=== PATIENT | male | born 1930 | race Caucasian/White ===

== ENCOUNTER → 2018-02-20 | Outpatient (CLI) | payer MEDICARE ==
[~2018-02-20] MED LIST: ALL300 PO; ALLO-2 PO; AMOX-559 PO; ASP81 PO; ASPI81TA94 PO; AZIT-1 PO; CYA1000 PO; GUAI120L3 PO; HCTZ25 PO; HYDR-2966 PO; LOSA100T67 PO; LOSA50TA72 PO; METO-253 PO; METO25TA91 PO; METO25TA93 PO; NEBI5TAB PO; PER PO; PNEU0.5D3 IM; SIMV-44 PO; SIMV-49 PO; SIMV10TA98 PO; VAL80 PO
== END ==
LOC: LAB 06:57
PROVIDERS: ATTEND Internal Medicine
DX: I10 Essential (primary) hypertension (principal); E78.5 Hyperlipidemia, unspecified
CPT/HCPCS: 36415; 82040; 82247; 82310; 82374; 82435; 82465; 82565; 82947; 83718; 84075; 84132; 84155; 84295; 84450; 84460; 84478; 84520

== ENCOUNTER → 2018-02-25 | Outpatient (CLI) | payer MEDICARE | LOC: LAB 09:53 | PROVIDERS: ATTEND Internal Medicine | DX: R76.9 Abnormal immunological finding in serum, unspecified (principal); I10 Essential (primary) hypertension | CPT/HCPCS: 36415; 82040; 82247; 82310; 82374; 82435; 82565; 82947; 84075; 84132; 84155; 84295; 84450; 84460; 84520 ==

== ENCOUNTER → 2018-05-05 | Outpatient (REF) | payer MEDICARE ==
[~2018-05-05] MED LIST changes: -LOSA100T67 PO; +LOSA100T69 PO; -LOSA50TA72 PO; +LOSA50TA74 PO
[2018-05-05 12:30] LABS: PLATELET COUNT, AUTOMATED 195 K/uL (150-450)
[2018-05-05 12:44] LABS: INR 1.09
== END ==
PROVIDERS: ATTEND Family Medicine
DX: R55 Syncope and collapse (principal)
CPT/HCPCS: 82040; 82247; 82310; 82374; 82435; 82565; 82947; 84075; 84132; 84155; 84295; 84450; 84460; 84484; 84520; 85025; 85610; 86140

== ENCOUNTER → 2018-05-07 | Outpatient (CLI) | payer MEDICARE ==
[~2018-05-07] MED LIST changes: +PANT40TA65 PO; +POLY17PO25 PO; +SUCR1TAB85 PO
[2018-05-07 11:10] LABS: PLATELET COUNT, AUTOMATED 180 K/uL (150-450)
== END ==
LOC: LAB 11:01
PROVIDERS: ATTEND Internal Medicine
DX: R19.5 Other fecal abnormalities (principal)
CPT/HCPCS: 36415; 85025

== ENCOUNTER 2018-06-08 23:14 | Inpatient (IN) | payer MEDICARE ==
[~2018-06-08] VITALS: Ht 162.6 cm; Wt 74.8 kg
--- NOTE | 2018-06-08 23:28 | ER Report ---
History and Physical Time Seen By MD: 23:27 HPI/ROS CHIEF COMPLAINT: Difficulty breathing HISTORY OF PRESENT ILLNESS: 77-year-old male been sick with URI symptoms for 2-3 days. Had a coughing episode this afternoon he became more short of breath. He is unable to catch his breath. On Arrival here, pulse ox is 87%. Patient states he is on no O2 at home. He's placed on supplemental O2. He is not on home O2. He does have a history of COPD. He's had a productive cough of some green sputum. He denies fevers. Patient denies chest pain. He denies leg swelling. REVIEW OF SYSTEMS: Respiratory: As above Cardiovascular: No chest pain, no palpitations. Gastrointestinal: No vomiting, no abdominal pain. Musculoskeletal: No back pain. Allergies: Coded Allergies: No Known Drug Allergies (Unverified , 12/07/14) Home Meds Active Scripts Pantoprazole Sodium (PANTOPRAZOLE SODIUM) 40 Mg Tablet.dr, 1 TAB PO DAILY, #90 TAB.SR 3 Refills Prov:KEERTHI MERCADO MD 05/31/18 Simvastatin (SIMVASTATIN) 10 Mg Tablet, 1 TAB PO QODAY, #45 TAB 3 Refills Prov:KEERTHI MERCADO MD 12/12/17 Hydrochlorothiazide (HYDROCHLOROTHIAZIDE) 25 Mg Tablet, 1 TAB PO QDAY, #90 TAB 3 Refills Prov:KEERTHI MERCADO MD 12/12/17 Allopurinol (Allopurinol) 300 Mg Tablet, 1 TAB PO DAILY, #90 TAB 3 Refills Prov:KEERTHI MERCADO MD 12/12/17 Losartan Potassium (LOSARTAN POTASSIUM) 100 Mg Tablet, 1 TAB PO QDAY, #90 TB12 3 Refills Prov:KEERTHI MERCADO MD 10/23/17 Nebivolol Hcl (BYSTOLIC) 5 Mg Tablet, 1 TAB PO QDAY, #90 TAB 3 Refills Prov:KEERTHI MERCADO MD 10/23/17 Reported Medications Aspirin (ASPIRIN) 81 Mg Tab.chew, 81 MG PO QDAY, TAB.CHEW 06/08/18 Polyethylene Glycol 3350 (MIRALAX) 17 Gm Powd.pack, 1 PACK PO QODAY, GM 05/07/18 Discontinued Reported Medications Aspirin (ASPIRIN) 81 Mg Tab.chew, 1 TAB PO BID, TAB.CHEW 03/01/15 Discontinued Scripts Sucralfate (CARAFATE) 1 Gm Tablet, 1 GM PO ACHS, #56 TAB 0 Refills Prov:KEERTHI MERCADO MD 05/07/18 Past Medical/Surgical History Past Medical History Neurologic: Reports hx of: transient ischemic attack ('93) Cardiovascular: Reports hx of: coronary artery disease (PTCA stent X2) hyperlipidemia hypertension myocardial infarction (09/2006) Respiratory: Reports hx of: COPD (former smoker, CXR c/w COPD) Musculoskeletal: Reports hx of: gout Integumentary: Reports hx of: eczema other integumentary hx (Rosacea) Past Surgical History HEENT: Reports hx of: cataract extraction (R eye 09/28, L 2013 ) Cardiovascular: Reports hx of: coronary stent (X 2006) Gastrointestinal: Reports hx of: appendectomy (age 15) Musculoskeletal: Reports hx of: carpal tunnel release (R 07/07) Family History Hx Smoking: Yes Smoking Status: Former Smoker Exposure to Second Hand Smoke?: No Hx Substance Use Disorder: No Hx Alcohol Use: Yes (BEER TONITE) Constitutional Vital Sign - Last 24 Hours 06/08/18 06/08/18 06/09/18 06/09/18 23:29 23:57 00:01 00:16 Temp 97.6 Pulse 100 ? Resp 20 B/P (MAP) 134/82 Pulse Ox 87 O2 Delivery Room Air O2 Flow Rate 2.0 06/09/18 06/09/18 06/09/18 06/09/18 00:46 00:58 01:01 01:16 Pulse ??? 80 ??? B/P (MAP) 149/82 (104) Pulse Ox 89 06/09/18 06/09/18 06/09/18 06/09/18 01:30 01:31 01:40 01:46 Pulse 71 63 Resp 20 B/P (MAP) 137/87 (104) 138/77 (97) Pulse Ox 95 97 06/09/18 06/09/18 06/09/18 01:50 02:00 02:01 Pulse 58 B/P (MAP) 130/67 (88) 119/67 (84) Physical Exam Vital signs stable, tachycardic, irregular rhythm on the monitor, ox 87% on room air, placed on 2 L by nasal cannula pale appearing, skin warm and dry, mild respiratory distress General Appearance: The patient is alert, has no immediate need for airway protection and no current signs of toxicity. HEENT: Pupils equal and round no injection. Respiratory: Chest is non tender,, there are decreased breath sounds on the left. There are Rales noted in the base on the right Cardiac: regular rate and rhythm Gastrointestinal: Abdomen is soft and non tender, no masses, bowel sounds normal. Musculoskeletal: Neck: Neck is supple and non tender. No JVD, no lymphadenopathy Extremities have full range of motion and are non tender. There is chronic appearing edema of the right lower extremity. Patient states it's normal Skin: No rashes or lesions. DIFFERENTIAL DIAGNOSIS: After history and physical exam differential diagnosis was considered for shortness of breath including but not limited to pulmonary infectious process, COPD, asthma, pulmonary embolus and congestive heart failure. Medical Decision Making Data Points Result Diagram: 06/08/18 2348 06/08/18 2348 Laboratory Hematology Test 06/08/18 23:48 06/09/18 01:10 Red Blood Count 4.24 M/uL (4.00-5.60) Mean Corpuscular Volume 99.1 fL (80.0-96.0) Mean Corpuscular Hemoglobin 33.4 pg (26.0-33.0) Mean Corpuscular Hemoglobin Concent 33.7 g/dL (32.0-36.0) Red Cell Distribution Width 14.3 % (11.5-14.5) Mean Platelet Volume 9.4 fL (7.2-11.1) Neutrophils (%) (Auto) % (39.4-72.5) Lymphocytes (%) (Auto) % (17.6-49.6) Monocytes (%) (Auto) % (4.1-12.4) Eosinophils (%) (Auto) % (0.4-6.7) Basophils (%) (Auto) % (0.3-1.4) Nucleated RBC Relative Count (auto) /100WBC Neutrophils # (Auto) K/uL (2.0-7.4) Lymphocytes # (Auto) K/uL (1.3-3.6) Monocytes # (Auto) K/uL (0.3-1.0) Eosinophils # (Auto) K/uL (0.0-0.5) Basophils # (Auto) K/uL (0.0-0.1) Nucleated RBC Absolute Count (auto) K/uL Neutrophils % (Manual) 85 % (39.4-72.5) Lymphocytes % (Manual) 9 % (17.6-49.6) Monocytes % (Manual) 2 % (4.1-12.4) Eosinophils % (Manual) 0 % (0.4-6.7) Basophils % (Manual) 1 % (0.3-1.4) Metamyelocytes % 3 % Peripheral Blood Smear Yes Y/N D-Dimer Quantitative (PE/DVT) 0.61 ug/ml (0-0.50) Sodium Level 135 mmol/L (137-145) Potassium Level 3.6 mmol/L (3.5-5.0) Chloride Level 101 mmol/L (98-107) Carbon Dioxide Level 23 mmol/L (22-30) Blood Urea Nitrogen 23 mg/dl (9-21) Creatinine 1.50 mg/dl (0.66-1.25) Glomerular Filtration Rate Calc 44.2 Random Glucose 149 mg/dl (75-110) Calcium Level 9.7 mg/dl (8.4-10.2) Total Bilirubin 0.9 mg/dl (0.2-1.3) Aspartate Amino Transf (AST/SGOT) 22 U/L (0-35) Alanine Aminotransferase (ALT/SGPT) 30 U/L (0-56) Alkaline Phosphatase 61 U/L (0-126) Troponin I 0.018 ng/ml B-Type Natriuretic Peptide 158 pg/ml (0-100) Total Protein 6.9 g/dl (6.3-8.2) Albumin 3.9 g/dl (3.5-5.0) Urine Color Yasemin Urine Clarity Slightly-cloudy Urine pH 5.0 pH (4.8-9.5) Urine Specific [place] 1.025 Urine Protein 100 mg/dL (NEGATIVE) Urine Glucose (UA) Negative mg/dL (NEGATIVE) Urine Ketones Negative mg/dL (NEGATIVE) Urine Blood Negative (NEGATIVE) Urine Nitrite Negative (NEGATIVE) Urine Bilirubin Negative (NEGATIVE) Urine Urobilinogen 2.0 mg/dL (0.2-1.9) Urine Leukocyte Esterase Negative (NEGATIVE) Urine RBC 2 /HPF (0-2/HPF) Urine WBC 1 /HPF (0-5/HPF) Urine Squamous Epithelial Cells Moderate /LPF (</=FEW) Urine Transitional Epithelial Cells Few /LPF (NONE-FEW) Urine Bacteria Negative /HPF (NONE-FEW) Urine Hyaline Casts Few /LPF (NONE-FEW) Urine Mucus Few /HPF (NONE-FEW) Chemistry Test 06/08/18 23:48 06/09/18 01:10 White Blood Count 10.7 k/uL (4.5-11.0) Red Blood Count 4.24 M/uL (4.00-5.60) Hemoglobin 14.1 g/dL (14.0-18.0) Hematocrit 42.0 % (42.0-52.0) Mean Corpuscular Volume 99.1 fL (80.0-96.0) Mean Corpuscular Hemoglobin 33.4 pg (26.0-33.0) Mean Corpuscular Hemoglobin Concent 33.7 g/dL (32.0-36.0) Red Cell Distribution Width 14.3 % (11.5-14.5) Platelet Count 204 K/uL (150-450) Mean Platelet Volume 9.4 fL (7.2-11.1) Neutrophils (%) (Auto) % (39.4-72.5) Lymphocytes (%) (Auto) % (17.6-49.6) Monocytes (%) (Auto) % (4.1-12.4) Eosinophils (%) (Auto) % (0.4-6.7) Basophils (%) (Auto) % (0.3-1.4) Nucleated RBC Relative Count (auto) /100WBC Neutrophils # (Auto) K/uL (2.0-7.4) Lymphocytes # (Auto) K/uL (1.3-3.6) Monocytes # (Auto) K/uL (0.3-1.0) Eosinophils # (Auto) K/uL (0.0-0.5) Basophils # (Auto) K/uL (0.0-0.1) Nucleated RBC Absolute Count (auto) K/uL Neutrophils % (Manual) 85 % (39.4-72.5) Lymphocytes % (Manual) 9 % (17.6-49.6) Monocytes % (Manual) 2 % (4.1-12.4) Eosinophils % (Manual) 0 % (0.4-6.7) Basophils % (Manual) 1 % (0.3-1.4) Metamyelocytes % 3 % Peripheral Blood Smear Yes Y/N D-Dimer Quantitative (PE/DVT) 0.61 ug/ml (0-0.50) Glomerular Filtration Rate Calc 44.2 Calcium Level 9.7 mg/dl (8.4-10.2) Total Bilirubin 0.9 mg/dl (0.2-1.3) Aspartate Amino Transf (AST/SGOT) 22 U/L (0-35) Alanine Aminotransferase (ALT/SGPT) 30 U/L (0-56) Alkaline Phosphatase 61 U/L (0-126) Troponin I 0.018 ng/ml B-Type Natriuretic Peptide 158 pg/ml (0-100) Total Protein 6.9 g/dl (6.3-8.2) Albumin 3.9 g/dl (3.5-5.0) Urine Color Yasemin Urine Clarity Slightly-cloudy Urine pH 5.0 pH (4.8-9.5) Urine Specific [place] 1.025 Urine Protein 100 mg/dL (NEGATIVE) Urine Glucose (UA) Negative mg/dL (NEGATIVE) Urine Ketones Negative mg/dL (NEGATIVE) Urine Blood Negative (NEGATIVE) Urine Nitrite Negative (NEGATIVE) Urine Bilirubin Negative (NEGATIVE) Urine Urobilinogen 2.0 mg/dL (0.2-1.9) Urine Leukocyte Esterase Negative (NEGATIVE) Urine RBC 2 /HPF (0-2/HPF) Urine WBC 1 /HPF (0-5/HPF) Urine Squamous Epithelial Cells Moderate /LPF (</=FEW) Urine Transitional Epithelial Cells Few /LPF (NONE-FEW) Urine Bacteria Negative /HPF (NONE-FEW) Urine Hyaline Casts Few /LPF (NONE-FEW) Urine Mucus Few /HPF (NONE-FEW) Coagulation Test 06/08/18 23:48 D-Dimer Quantitative (PE/DVT) 0.61 ug/ml Urinalysis Test 06/09/18 01:10 Urine Color Yasemin Urine Clarity Slightly-cloudy Urine pH 5.0 pH (4.8-9.5) Urine Specific [place] 1.025 Urine Protein 100 mg/dL (NEGATIVE) Urine Glucose (UA) Negative mg/dL (NEGATIVE) Urine Ketones Negative mg/dL (NEGATIVE) Urine Blood Negative (NEGATIVE) Urine Nitrite Negative (NEGATIVE) Urine Bilirubin Negative (NEGATIVE) Urine Urobilinogen 2.0 mg/dL (0.2-1.9) Urine Leukocyte Esterase Negative (NEGATIVE) Urine RBC 2 /HPF (0-2/HPF) Urine WBC 1 /HPF (0-5/HPF) Urine Squamous Epithelial Cells Moderate /LPF (</=FEW) Urine Transitional Epithelial Cells Few /LPF (NONE-FEW) Urine Bacteria Negative /HPF (NONE-FEW) Urine Hyaline Casts Few /LPF (NONE-FEW) Urine Mucus Few /HPF (NONE-FEW) EKG/Imaging EKG Interpretation 12 lead EK Rhythm: Indeterminate rhythm, appears a regular there are P waves in front of certain complexes [place]: Left axis deviation QRS: Right bundle branch block pattern ST segments:, Nonspecific ST and T-wave changes, comparison to previous EKG on 06/04/17, no significant morphologic change. Patient was previously in a normal sinus rhythm with first-degree AV block Imaging X-ray: Single view portable chest x-ray was obtained. I viewed the images myself on the PACS system. My interpretation of the images is: Large pneumot horax on the left. The radiologist interpretation had no clinically significant variation from this interpretation. ED Course/Re-evaluation ED Course Patient was admitted to an examination room. H&P was done. The differential diagnosis was considered. On clinical examination. Patient has symptoms suggestive of pneumonia or bronchitis. Patient has worsening shortness of breath worrisome for pulmonary embolism as well. Agnostic evaluation is undertaken. Portable chest x-rays performed, which shows a large pneumothorax on the left. Surgical consultation with Dr. Osorio was obtained. He will come place a chest tube and admit the patient to the hospital. 06/09/2018 12:56:12 am case discussed with Dr. Matt Osorio, general surgery on- call, who will come insert a chest tube and admit the patient. Decision to Disposition Date: Jun 09, 2018 Decision to Disposition Time: 00:55 Depart Departure Latest Vital Signs Vital Signs Date Time Temp Pulse Resp B/P (MAP) Pulse Ox O2 Delivery O2 Flow Rate FiO2 06/09/18 02:01 58 06/09/18 02:00 119/67 (84) 06/09/18 01:46 97 06/09/18 01:31 20 06/08/18 23:57 2.0 06/08/18 23:29 97.6 Room Air Impression: Primary Impression: Pneumothorax, left Additional Impressions: Pure hypercholesterolemia Gout Essential hypertension Condition: Improved Disposition: Admitted from ER Referrals: KEERTHI MERCADO MD (PCP) Problem Qualifiers Additional Impressions: Gout Gout site: unspecified site Gout etiology: unspecified cause Chronicity: unspecified Qualified Codes: M10.9 - Gout, unspecified CHANDA VILLALOBOS DO Jun 08, 2018 23:27
--- NOTE | 2018-06-08 23:44 | EKG ---
FACILITY: [facility] PATIENT NAME: SOBEIDA GARCIA : [id number] MR: [id number] V: [id number] EXAM DATE: ORDERING PHYSICIAN: CHANDA VILLALOBOS TECHNOLOGIST: DILAN Test Reason : DYSPNEA Blood Pressure : / mmHG Vent. Rate : 086 BPM Atrial Rate : 085 BPM P-R Int : 000 ms QRS Dur : 138 ms QT Int : 410 ms P-R-T Axes : 000 -87 070 degrees QTc Int : 490 ms Sinus rhythm with 1st degree AV block and frequent PACs Left axis deviation Right bundle branch block Abnormal ECG When compared with ECG of 04-JUN-2017 15:25, Current undetermined rhythm precludes rhythm comparison, needs review Confirmed by MEGAN VIGIL ([id number]) on 06/09/2018 6:16:14 AM Referred By: Confirmed By:MEGAN VIGIL
[2018-06-08] MEDS ORDERED: ASPI81TA94 PO (23:52)
[2018-06-09 00:18] LABS: PLATELET COUNT, AUTOMATED 204 K/uL (150-450)
--- NOTE | 2018-06-09 00:53 | RADIOLOGY IMAGING REPORT ---
FACILITY: [facility] [place] PATIENT NAME: Collins Newman : 1930 MR: [id number] V: [id number] EXAM DATE: ORDERING PHYSICIAN: CHANDA VILLALOBOS TECHNOLOGIST: Location: [facility] Patient: Collins Newman : 1930 Visit/Account:[id number] Date of Sevice: 06/08/2018 CHEST PA AND LAT HISTORY: Respiratory distress. COMPARISON: 05/05/2018 and studies dating to 08/20/2008. TECHNIQUE: PA and lateral views of the chest. FINDINGS: Pulmonary: There is a moderate to large left pneumothorax with atelectasis in the visible left lung. Right lung is clear. There is a trace left pleural effusion. Cardiomediastinal: Cardiac and mediastinal silhouettes are within normal limits. There is mild aortic calcification. No mediastinal shift. Bones/soft tissues: No acute osseous abnormality. There is mild degenerative change of the spine. The visible abdomen is normal. IMPRESSION: 1. Moderate to large left pneumothorax without evidence for tension. 2. Trace left pleural effusion. 3. Right lung is clear. These findings were discussed by phone with CHANDA VILLALOBOS on 06/09/2018 12:45 AM. Report Dictated By: Radha Ellis at 06/09/2018 12:44 AM Report E-Signed By: Radha Ellis at 06/09/2018 12:49 AM WSN:[id number]
[2018-06-09] MEDS ORDERED: ONDANSETRON 4 MG/2 ML VIAL IVP PRN (01:55)
[2018-06-09] MEDS ORDERED: MORPHINE 2 MG/ML SYR IVP PRN (01:55)
[2018-06-09] MEDS ORDERED: FLUSH 10 ML SYR IVP PRN (01:55)
[2018-06-09] MEDS ORDERED: NALOXONE HCL 0.4 MG/ML VIAL IVP PRN (01:55)
--- NOTE | 2018-06-09 01:55 | RADIOLOGY IMAGING REPORT ---
FACILITY: [facility] - [place] [place] PATIENT NAME: Collins Newman : 1930 MR: [id number] V: [id number] EXAM DATE: ORDERING PHYSICIAN: CHANDA VILLALOBOS TECHNOLOGIST: Location: [facility] Patient: Collins Newman : 1930 Visit/Account:[id number] Date of Sevice: 06/09/2018 CHEST SINGLE AP HISTORY: Pneumothorax. Chest tube placement. COMPARISON: None available. FINDINGS: Lines/tubes: Interval placement of a left-sided chest tube with the tip projecting over the left hil um. Lungs/pleura: Interval reexpansion of the left lung with no definite residual pneumothorax. Heart: Negative. Mediastinum: Negative. Bony structures/body wall: Soft tissue gas in the left chest wall consistent with recent chest tube placement. IMPRESSION: Interval placement of a left-sided chest tube with reexpansion of the left lung. Report Dictated By: Anand Anderson MD at 06/09/2018 1:50 AM Report E-Signed By: Anand Anderson MD at 06/09/2018 1:52 AM WSN:[id number]
--- NOTE | 2018-06-09 01:59 | Procedure Note ---
Chest Tube Procedure Note Reason for Chest Tube Left PTX Consent Signed: No Chest Tube Location: Left Lung Complications: None Anesthesia Used: 1% Lidocaine CC's of Anesthesia: 10 Chest Tube Size Fr.: 28 Chest Tube Suction: Pleura-Vac Chest Tube Secured: Occlusive Dressing Post Procedure Xray Ordered: Yes DAQUAN LORENZ MD Jun 09, 2018 01:59
--- NOTE | 2018-06-09 02:02 | Gen Surgery History & Physical ---
History of Present Illness Chief Complaint Shortness of breath History of Present Illness 87-year-old gentleman reports that he has been dealing with a upper respiratory infection involving a cough when he was coughing earlier this evening and then shortly thereafter started having chest pain and shortness of breath prompting him to come into the emergency room. Chest x-ray reveals a left pneumothorax with left lung 80% collapsed. He has never before had a pneumothorax. He denies any history of chest surgery. History Problems: (1) History of peptic ulcer disease Status: Chronic (2) Rosacea Status: Chronic (3) Dermatitis Status: Chronic (4) Gout Status: Chronic (5) Essential hypertension Status: Chronic (6) Pure hypercholesterolemia Status: Chronic (7) FH: diabetes mellitus (8) FH: alcoholism (9) FHx: heart disease (10) FH: memory loss (11) FH: myocardial infarction Home Meds Active Scripts Pantoprazole Sodium (PANTOPRAZOLE SODIUM) 40 Mg Tablet.dr, 1 TAB PO DAILY, #90 TAB.SR 3 Refills Prov:KEERTHI MERCADO MD 05/31/18 Simvastatin (SIMVASTATIN) 10 Mg Tablet, 1 TAB PO QODAY, #45 TAB 3 Refills Prov:KEERTHI MERCADO MD 12/12/17 Hydrochlorothiazide (HYDROCHLOROTHIAZIDE) 25 Mg Tablet, 1 TAB PO QDAY, #90 TAB 3 Refills Prov:KEERTHI MERCADO MD 12/12/17 Allopurinol (Allopurinol) 300 Mg Tablet, 1 TAB PO DAILY, #90 TAB 3 Refills Prov:KEERTHI MERCADO MD 12/12/17 Losartan Potassium (LOSARTAN POTASSIUM) 100 Mg Tablet, 1 TAB PO QDAY, #90 TB12 3 Refills Prov:KEERTHI MERCADO MD 10/23/17 Nebivolol Hcl (BYSTOLIC) 5 Mg Tablet, 1 TAB PO QDAY, #90 TAB 3 Refills Prov:KEERTHI MERCADO MD 10/23/17 Reported Medications Aspirin (ASPIRIN) 81 Mg Tab.chew, 81 MG PO QDAY, TAB.CHEW 06/08/18 Polyethylene Glycol 3350 (MIRALAX) 17 Gm Powd.pack, 1 PACK PO QODAY, GM 05/07/18 Discontinued Reported Medications Aspirin (ASPIRIN) 81 Mg Tab.chew, 1 TAB PO BID, TAB.CHEW 03/01/15 Discontinued Scripts Sucralfate (CARAFATE) 1 Gm Tablet, 1 GM PO ACHS, #56 TAB 0 Refills Prov:KEERTHI MERCADO MD 05/07/18 Allergies: Coded Allergies: No Known Drug Allergies (Unverified , 12/07/14) Patient History: FH: alcoholism BROTHER OR SISTER (WAS TWIN TO A SISTER), , Age:82 FH: diabetes mellitus BROTHER OR SISTER, , Age:53 FH: memory loss BROTHER OR SISTER, Age:90 FH: myocardial infarction FATHER, , Age:59 MOTHER, , Age:78 FHx: heart disease FATHER, , Age:59 MOTHER, , Age:78 Review of Systems All Systems Reviewed/Normal: Yes, Except as Noted Cardiovascular: Chest Pain Respiratory: Shortness of Breath, Cough Exam General Appearance: Alert, Awake, No Acute Distress, Afebrile Neuro: No Gross deficits Eyes: PERRLA Respiratory: Other (distant left breast sounds, normal on right) GI: Abd Soft and Non-Tender Extremities: Warm, Perfused Psych: Alert & Oriented X3, Appropriate Mood & Affect Medical Decision Making Data Points Result Diagram: 06/08/188 06/08/18 234 Assessment and Plan Problems: (1) Pneumothorax, left Status: Acute Assessment & Plan: 06/09/18: Left 28 Taj[place] chest tube inserted without problems. Post placement film reveals complete expansion of left lung. Patient will be admitted for chest tube management. Patient and are agreeable with this plan. Condition Stable Time Spent: < 30 min Venous Thromboembolism VTE Risk Physician Assess for VTE Risk: Yes Patient's VTE Risk: Low VTE Diagnostic Test 2 Days Prior to Admit: No Antithrombotics Is Pt On Any Antithrombotics?: No DAQUAN LORENZ MD Jun 09, 2018 02:02
[2018-06-09] MEDS ORDERED: fentaNYL CITR 100 MCG/2 ML AMP IVP PRN (02:35)
[2018-06-09 03:40] VITALS: BP 127/55
--- NOTE | 2018-06-09 05:35 | EKG ---
FACILITY: [facility] - [place] PATIENT NAME: SOBEIDA GARCIA : [id number] MR: [id number] V: [id number] EXAM DATE: ORDERING PHYSICIAN: DAQUAN LORENZ TECHNOLOGIST: DILAN Test Reason : ? ST CHANGES Blood Pressure : / mmHG Vent. Rate : 058 BPM Atrial Rate : 058 BPM P-R Int : 286 ms QRS Dur : 124 ms QT Int : 440 ms P-R-T Axes : 073 -76 -17 degrees QTc Int : 431 ms Sinus bradycardia with 1st degree AV block Left axis deviation Right bundle branch block Abnormal ECG Confirmed by MEGAN VIGIL ([id number]) on 06/09/2018 6:14:13 AM Referred By: Confirmed By:MEGAN VIGIL
[2018-06-09] MEDS ORDERED: NS(*) 0.9% 1000 ML BAG 1,000 ML IV ONE (05:55)
--- NOTE | 2018-06-09 05:58 | Hospitalist Consultation ---
History of Present Illness Requesting Physician Dr. Clay Reason for Consult ST elevation on telemetry Chief Complaint Shortness of breath and chest pain after coughing. History of Present Illness The patient is an 87 year old male admitted for pneumothorax which occurred after he had a coughing spell last evening. The patient has had URI symptoms at home. The patient developed acute shortness of breath and increased chest pain last evening and [facility]. He was found to have a left-sided pneumothorax. Dr. Clay placed a chest tube and his lung was reexpanded. The patient states he continues to have some chest pain with coughing but his pain is otherwise much improved. The patient has a history of CAD. He was having chest pain while traveling through [place] on his way to [place] in [place] in 2006. He ended up having 2 stents placed while in [place]. He was following with the [place] [facility] but stopped seeing them. He sees Dr. Alejandro Syed as his PCP in [place]. He states he has had no problems since the stents were placed. 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 (8) History of peptic ulcer disease Status: Chronic Home Meds Active Scripts Pantoprazole Sodium (PANTOPRAZOLE SODIUM) 40 Mg Tablet., 1 TAB PO DAILY, #90 TAB.SR 3 Refills Prov:ALEJANDRO SYED MD 05/31/18 Simvastatin (SIMVASTATIN) 10 Mg Tablet, 1 TAB PO QODAY, #45 TAB 3 Refills Prov:ALEJANDRO SYED MD 12/12/17 Hydrochlorothiazide (HYDROCHLOROTHIAZIDE) 25 Mg Tablet, 1 TAB PO QDAY, #90 TAB 3 Refills Prov:ALEJANDRO SYED MD 12/12/17 Allopurinol (Allopurinol) 300 Mg Tablet, 1 TAB PO DAILY, #90 TAB 3 Refills Prov:ALEJANDRO SYED MD 12/12/17 Losartan Potassium (LOSARTAN POTASSIUM) 100 Mg Tablet, 1 TAB PO QDAY, #90 TB12 3 Refills Prov:ALEJANDRO SYED MD 10/23/17 Nebivolol Hcl (BYSTOLIC) 5 Mg Tablet, 1 TAB PO QDAY, #90 TAB 3 Refills Prov:ALEJANDRO SYED MD 10/23/17 Reported Medications Aspirin (ASPIRIN) 81 Mg Tab.chew, 81 MG PO QDAY, TAB.CHEW 06/08/18 Polyethylene Glycol 3350 (MIRALAX) 17 Gm Powd.pack, 1 PACK PO QODAY, GM 05/07/18 Discontinued Reported Medications Aspirin (ASPIRIN) 81 Mg Tab.chew, 1 TAB PO BID, TAB.CHEW 03/01/15 Discontinued Scripts Sucralfate (CARAFATE) 1 Gm Tablet, 1 GM PO ACHS, #56 TAB 0 Refills Prov:ALEJANDRO SYED MD 05/07/18 Allergies: Coded Allergies: No Known Drug Allergies (Unverified , 12/07/14) Patient History: FH: alcoholism BROTHER OR SISTER (WAS TWIN TO A SISTER), , Age:82 FH: diabetes mellitus BROTHER OR SISTER, , Age:53 FH: memory loss BROTHER OR SISTER, Age:90 FH: myocardial infarction FATHER, , Age:59 MOTHER, , Age:78 FHx: heart disease FATHER, , Age:59 MOTHER, , Age:78 Hx Smoking: Yes Smoking Status: Former Smoker Exposure to Second Hand Smoke?: No When Quit Tobacco?: EARLY Caffeine Intake: Coffee, Tea Caffeine/Cups Per Day: 2.5 Hx Alcohol Use: Yes Alcohol Used: Beer Hx Substance Use Disorder: No History of IV Drug Use: No Review of Systems All Systems Reviewed/Normal: Yes, Except as Noted Constitutional: No Fever ENT: Hearing Loss Cardiovascular: Chest Pain (Due to pneumothorax and subsequent chest tube placement. Now only pain with coughing.) Respiratory: Cough (Has had "cold" symptoms.); No Shortness of Breath (Shortness of breath resolved with chest tube placement.) Gastrointestinal: No Nausea Musculoskeletal: Pain (L chest wall due to chest tube placement.) Exam Vital Signs Vital Signs Date Time Temp Pulse Resp B/P (MAP) Pulse Ox O2 Delivery O2 Flow Rate FiO2 06/09/18 03:40 98.3 53 16 127/55 (79) 97 Nasal Cannula 3.0 General Appearance: Alert, Awake, No Acute Distress, Afebrile Neuro: No Gross deficits Eyes: PERRLA Cardiovascular: Regular Rate and Rhythm (With occasional ectopy.) Respiratory: No Respiratory Distress, Clear to Auscultation Chest: Other (Chest tube in place, lower L chest wall.) GI: Abd Soft and Non-Tender Extremities: Warm, Perfused, Other (No significant edema. SCDs in place.) Integumentary: Skin Intact without Lesion / Mass Psych: Alert & Oriented X3, Appropriate Mood & Affect Medical Decision Making Data Points Result Diagram: 06/08/18234706/08/182347 Item Value Date Time Calcium Level 9.7 mg/dl 06/08/182347 Total Bilirubin 0.9 mg/dl 06/08/182347 Aspartate Amino Transf (AST/SGOT) 22 U/L 06/08/182347 Alanine Aminotransferase (ALT/SGPT) 30 U/L 06/08/182347 Alkaline Phosphatase 61 U/L 06/08/182347 Total Protein 6.9 g/dl 06/08/188 Albumin 3.9 g/dl 06/08/18 2348 B-Type Natriuretic Peptide 158 pg/ml H 06/08/18 2348 Troponin I 0.018 ng/ml 06/08/18 2348 Troponin I 0.119 ng/ml 06/09/18 0500 D-Dimer Quantitative (PE/DVT) 0.61 ug/ml H 06/08/18 2348 Urine Color Yasemin 06/09/18109 Urine Clarity Slightly-cloudy 06/09/18109 Urine pH 5.0 pH 06/09/18109 Urine Specific [place] 1.025 06/09/18 0110 Urine Protein 100 mg/dL 06/09/18 0110 Urine Glucose (UA) Negative mg/dL 06/09/18 011 Urine Ketones Negative mg/dL 06/09/18 0110 Urine Blood Negative 06/09/18 011 Urine Nitrite Negative 06/09/18 011 Urine Bilirubin Negative 06/09/18 011 Urine Urobilinogen 2.0 mg/dL 06/09/18 011 Urine Leukocyte Esterase Negative 06/09/18 0110 Urine RBC 2 /HPF 06/09/18 0110 Urine WBC 1 /HPF 06/09/18 0110 Urine Squamous Epithelial Cells Moderate /LPF H 06/09/18 0110 Urine Transitional Epithelial Cells Few /LPF 06/09/18109 Urine Bacteria Negative /HPF 06/09/18109 Urine Hyaline Casts Few /LPF 06/09/18109 Urine Mucus Few /HPF 06/09/18109 EKG / Imaging EKG Interpretation Initial EKG shows sinus rhythm with first degree AV block and frequent PACs, left axis deviation and RBBB. Repeat EKG shows sinus bradycardia with first degree AV block, left axis deviation and RBBB. No ischemic changes noted. Monitor Interpretation: Sinus Bradycardia Imaging [place]AC[place] [facility] [place]IENT NAME: Collins Newman : 1930 MR: [id number] V: [id number] EXAM DATE: ORDERING PHYSICIAN: CHANDA VILLALOBOS TECHNOLOGIST: Location: [facility] Patient: Collins Newman : 1930 Visit/Account:[id number] Date of Sevice: 06/09/2018 CHEST SINGLE AP HISTORY: Pneumothorax. Chest tube placement. COMPARISON: None available. FINDINGS: Lines/tubes: Interval placement of a left-sided chest tube with the tip projecting over the left hilum. Lungs/pleura: Interval reexpansion of the left lung with no definite residual pneumothorax. Heart: Negative. Mediastinum: Negative. Bony structures/body wall: Soft tissue gas in the left chest wall consistent with recent chest tube placement. IMPRESSION: Interval placement of a left-sided chest tube with reexpansion of the left lung. Report Dictated By: Anand Anderson MD at 06/09/2018 1:50 AM Report E-Signed By: Anand Anderson MD at 06/09/2018 1:52 AM WSN:[id number] Pre-Admit Course Medical Record Review: Yes ([facility] Assessment and Plan Problems: (1) Elevated troponin Status: Acute Assessment & Plan: The patient has a history of CAD with stents in 2006 but has been stable. EKG shows no ischemic changes. The patient is only having pain at the site of his chest tube and when he coughs. He was a bit hypoxic on arrival to the ER with his pneumothorax. Will repeat a troponin at 0900. (2) Acute renal failure Status: Acute Assessment & Plan: BUN and creatinine are elevated above his baseline. Will gently hydrate. (3) Pneumothorax, left Status: Acute Assessment & Plan: Dr. Clay has placed a chest tube and CXR shows the left lung to be reexpanded. (4) CAD (coronary artery disease) Status: Chronic Assessment & Plan: The patient has a history of CAD s/p stents X 2 in 2006. He states he has not had any issues recently. He is on ASA and a beta delta. He does not see cardiology. He states he quit seeing them because they wanted him to do an ETT and he did not want to do it. (5) Essential hypertension Status: Chronic Assessment & Plan: On losartan, nebivolol and HCTZ. Will hold HCTZ as his BUN and creatinine are elevated. (6) Pure hypercholesterolemia Status: Chronic Assessment & Plan: Continue simvastatin 10mg. Venous Thromboembolism Antithrombotics Is Pt On Any Antithrombotics?: No Exam Sepsis Risk: No Definite Risk MEGAN GOLD MD Jun 09, 2018 05:58
[2018-06-09 07:25] VITALS: BP 132/67
--- NOTE | 2018-06-09 08:00 | General Surgery Progress Note ---
Subjective Progress Notes Subjective No complaints this morning. Had report of some ST segment changes on telemetry noted by medical staff coordinator but Hospitalist consulted and report no signs of ischemia on EKG. Troponin slightly elevated and they are following this. Physical Exam Vital Signs Date Time Temp Pulse Resp B/P (MAP) Pulse Ox O2 Delivery O2 Flow Rate FiO2 06/09/18 07:25 97.6 54 16 132/67 (88) 98 Nasal Cannula 2.0 General Appearance: Alert, Awake, No Acute Distress, Afebrile Cardiovascular: Regular Rate and Rhythm Respiratory: Clear to Auscultation GI: Soft and Non-Tender Extremities: Warm, Perfused Result Diagram: 06/08/18 2348 06/08/18 2348 Monitor Interpretation: Sinus Bradycardia Assessment and Plan Problems: (1) Pneumothorax, left Status: Acute Assessment & Plan: 06/09/18: Left 28 Romans[place] chest tube inserted without problems. Post placement film reveals complete expansion of left lung. Patient will be admitted for chest tube management. Patient and are agreeable with this plan. 06/09/18: DOing well. Morning CXR being done right now. Will change to water seal if CXR looks good. Will repeat tonight and remove chest tube if CXR looks good. Condition Stable. Time Spent: < 30 min Exam Sepsis Risk: No Definite Risk DAQUAN LORENZ MD Jun 09, 2018 08:00
--- NOTE | 2018-06-09 08:22 | RADIOLOGY IMAGING REPORT ---
FACILITY: [facility] - [place] PATIENT NAME: Collins Newman : 1930 MR: [id number] V: [id number] EXAM DATE: ORDERING PHYSICIAN: DAQUAN LORENZ TECHNOLOGIST: Location: [facility] Patient: Collins Newman : 1930 Visit/Account:[id number] Date of Sevice: 06/09/2018 CHEST SINGLE AP Indication: Left PTX, left chest tube Comparison: Chest x-ray 06/09/2018. Findings: Lungs: Left-sided chest tube with its tip near the upper third of the left hemithorax is unchanged. The left lung is well expanded and clear. Right lung is clear. Mediastinum/pulmonary vasculature: Heart size and pulmonary vasculature are normal. Bones/soft tissues: Left-sided soft tissue subcutaneous emphysema is seen, unchanged. IMPRESSION: 1. Left-sided chest tube, unchanged from 06/09/2018 at 1:31 AM. 2. Left lung is well-expanded and clear. Report Dictated By: Kenyon Lopez at 06/09/2018 8:14 AM Report E-Signed By: Kenyon Lopez at 06/09/2018 8:18 AM WSN:[email or web address]
[2018-06-09] MEDS: PANTOPRAZOLE SOD 40 MG TABEC PO SCH (08:32)
[2018-06-09] MEDS ORDERED: POLYETHYLENE GLYCOL 17 GM PKT PO SCH (09:00)
[2018-06-09] MEDS ORDERED: NEBIVOLOL HCL 5 MG TAB PO SCH ×2 (09:00→21:00)
[2018-06-09] MEDS ORDERED: HYDROCHLOROTHIAZIDE 25 MG TAB PO SCH (09:00)
[2018-06-09] MEDS ORDERED: ALLOPURINOL 300 MG TAB PO SCH ×2 (09:00→12:30)
[2018-06-09] MEDS ORDERED: ASPIRIN 81 MG ENTERIC COATED PO SCH ×2 (09:00→21:00)
[2018-06-09] MEDS: DOCUSATE SODIUM 100 MG CAP PO SCH ×2 (09:25→20:16)
[2018-06-09] MEDS: LOSARTAN POTASSIUM 50 MG TAB PO SCH (09:25)
[2018-06-09 12:12] VITALS: BP 130/54
[2018-06-09 12:19] VITALS: Ht 162.6 cm; Wt 74.8 kg
[2018-06-09] MEDS: BENZONATATE 100 MG CAP PO PRN ×2 (13:52→20:16)
--- NOTE | 2018-06-09 14:23 | Medical Nutrition Therapy ---
Nutrition Anthropometrics Height (Inches): 64.00 Height (Calculated Centimeters: 162.301386 Weight (Pounds): 165 Weight (Calculated Kilograms): 74.843 BMI: 28.3 Gagan Nutrition Score: Adequate Gagan Nutrition Risk Score: 18 Dietary Referral Nutrition Risk Factors: Nutrition Risk Comment: Physical Findings Physical Appearance: Overweight BMI 25-29 Skin Appearance Skin Appearance: Edema Edema Location Modifier: Both Edema Location: Foot Type of Edema: Degree of Edema: 1+ Gastrointestinal Symptoms GI Symtoms: Tube Present: Bowel Sounds: Recent Bowel Pattern: Stool Characteristics: Nutritional Diagnosis Nutritional Risk Acuity 1: Acute/ES Renal Nutritional Risk Acuity 3: OR & > 80 yrs Past Medical History: Hx of heart artery stents, CAD, HTN, Gout Nutritional Acuity: 1-High Nutrition Diagnosis: Decreased Nutrient Needs Nutrition Etiology: Physiological Causes Nutrition Problem/Etiology/Sym: Decreased protein needs r/t physiological causes AEB ARF - BUN 24, Creatinine 1.4. Energy Requirement: 1515 (M-SJ * 1.3) Protein Requirement: 60 (.8g/kg) Fluid Requirement: 2000 Nutrition Intervention: Cont diet as ordered, Encourage intake Nutrition Monitoring & Eval Nutrition Goals: Eat 75-100% Meal, Drink > 1500 cc/day RD Patient Assessment Time: [address] Assessment Type: RD Assessment Patient Nutrition Acuity: 1-High Follow Up Date: Jun 11, 2018 Nutritional Comment: 06/09 Pt admitted for pneumothorax but also experiencing Acute renal failure. Hx of heart artery stents, CAD, HTN, Gout. Pt ZOILA, no intake charted. Pt BUN elevated at 24, creatinine 1.4, BNP 158. Sodium low at 136. Random glucose elevated ranging from 117-150. Will follow. FIORELLA PRATHER Jun 09, 2018 12:41
--- NOTE | 2018-06-09 14:39 | Hospitalist Progress Note ---
Subjective Progress Notes Subjective 87M with pneumothorax. JOSELIN overnight, troponin stable without CP or EKG changes. Patient Complains of: Cardiovascular: No: Chest Pain, Palpitations Physical Exam Vital Signs Date Time Temp Pulse Resp B/P (MAP) Pulse Ox O2 Delivery O2 Flow Rate FiO2 06/09/18 13:06 93 Nasal Cannula 0.5 06/09/18 12:12 97.6 63 14 130/54 (79) General Appearance: Alert, Awake, No Acute Distress Neuro: No Gross deficits Eyes: PERRLA ENT: Normal Cardiovascular: Normal Rhythm & Peripheral Pulses Respiratory: Other (L sided chest tube to water seal, pleuritic discomfort) GI: Soft and Non-Tender Extremities: Soft and Non Tender, Warm, Pulses, Perfused; No Edema Integumentary: Skin Intact without Lesion / Mass Psych: Alert & Oriented X3 Result Diagram: 06/08/18 2348 06/09/18 0917 Monitor Interpretation: Sinus Bradycardia Assessment and Plan Problems: (1) Elevated troponin Status: Acute Assessment & Plan: The patient has a history of CAD with stents in 2006 but has been stable. EKG shows no ischemic changes. The patient is only having pain at the site of his chest tube and when he coughs. He was a bit hypoxic on arrival to the ER with his pneumothorax. Troponin elevated but stable, recommend outpatient Lexiscan given acute respiratory issues. (2) Acute renal failure Status: Acute Assessment & Plan: BUN and creatinine are elevated above his baseline. Will gently hydrate. (3) Pneumothorax, left Status: Acute Assessment & Plan: Dr. Clay has placed a chest tube and CXR shows the left lung to be reexpanded. (4) CAD (coronary artery disease) Status: Chronic Assessment & Plan: The patient has a history of CAD s/p stents X 2 in 2006. He states he has not had any issues recently. He is on ASA and a beta delta. He does not see cardiology. He states he quit seeing them because they wanted him to do an ETT and he did not want to do it. Recommend outpatient Lexiscan. (5) Essential hypertension Status: Chronic Assessment & Plan: On losartan, nebivolol and HCTZ. Will hold HCTZ as his BUN and creatinine are elevated. (6) Pure hypercholesterolemia Status: Chronic Assessment & Plan: Continue simvastatin 10mg. Exam Sepsis Risk: No Definite Risk EDUARDO HARRIS DO Jun 09, 2018 14:39
[2018-06-09] MEDS ORDERED: NEBI5TAB PO (15:44)
[2018-06-09] MEDS ORDERED: PANT40TA65 PO (15:45)
[2018-06-09 15:47] VITALS: BP 130/59
--- NOTE | 2018-06-09 15:59 | RADIOLOGY IMAGING REPORT ---
FACILITY: [facility] PATIENT NAME: Collins Newman : 1930 MR: [id number] V: [id number] EXAM DATE: ORDERING PHYSICIAN: DAQUAN LORENZ TECHNOLOGIST: Location: Patient: Collins Newman : 1930 Visit/Account:[id number] Date of Sevice: 06/09/2018 CHEST SINGLE AP INDICATION: Left PTX, chest tube on water seal COMPARISON: 06/09/2018 FINDINGS: Heart size within normal limits. Left-sided chest tube is unchanged in position. No pneumothorax is identified. Subcutaneous emphyse ma along the left chest wall is unchanged. No consolidation is identified. IMPRESSION: 1. No pneumothorax identified on the left, stable subcutaneous emphysema Report Dictated By: Gerry Busby at 06/09/2018 3:53 PM Report E-Signed By: Gerry Busby at 06/09/2018 3:55 PM WSN:[id number]
[2018-06-09 20:02] VITALS: BP 122/64
[2018-06-09] MEDS ORDERED: SIMVASTATIN 20 MG TAB PO SCH (21:00)
--- NOTE | 2018-06-09 23:36 | RADIOLOGY IMAGING REPORT ---
FACILITY: [facility] - [place] PATIENT NAME: Collins Newman : 1930 MR: [id number] V: [id number] EXAM DATE: ORDERING PHYSICIAN: DAQUAN LORENZ TECHNOLOGIST: Location: [facility] [place] Patient: Collins Newman : 1930 Visit/Account:[id number] Date of Sevice: 06/09/2018 CHEST SINGLE AP 06/09/2018 18:25 hours. HISTORY: Removed chest tube. COMPARISON: 06/09/2018 at 3:11 PM and studies dating to 08/20/2008. TECHNIQUE: Portable AP view of the chest. FINDINGS: Tubes/lines/hardware: Left chest tube has been removed. There are external chest leads. Pulmonary: Small left apical pneumothorax is unchanged. Lungs are clear. No pleural effusion. Cardiomediastinal: Cardiac and mediastinal silhouettes are within normal limits. There is mild aortic calcification. Bones/soft tissues: No acute osseous abnormality. There is subcutaneous emphysema of the left chest w all, unchanged. The visible abdomen is normal. IMPRESSION: 1. No change in size of the small left apical pneumothorax post chest tube removal Report Dictated By: Radha Ellis at 06/09/2018 11:30 PM Report E-Signed By: Radha Ellis at 06/09/2018 11:33 PM WSN:[id number]
[2018-06-10 00:09] VITALS: BP 120/63
[2018-06-10 04:22] VITALS: BP 129/76
--- NOTE | 2018-06-10 05:51 | Short(Outpt) Discharge Summary ---
Discharge Summary Reason for Hosp/Final Diag: (1) Pneumothorax, left Status: Acute Hospital Course & Plan: 06/09/18: Left 28 [place] chest tube inserted without problems. Post placement film reveals complete expansion of left lung. Patient will be admitted for chest tube management. Patient and are agreeable with this plan. 06/09/18: DOing well. Morning CXR being done right now. Will change to water seal if CXR looks good. Will repeat tonight and remove chest tube if CXR looks good. 06/10/18: DOing well. CXR is stable with tiny apical postpull PTX that's getting smaller. WIll d/c to home this morning. Departure Discharge to: Home, Self Care Discharge Instructions Home Meds Active Scripts Simvastatin (SIMVASTATIN) 10 Mg Tablet, 1 TAB PO QODAY, #45 TAB 3 Refills Prov:KEERTHI MERCADO MD 12/12/17 Hydrochlorothiazide (HYDROCHLOROTHIAZIDE) 25 Mg Tablet, 1 TAB PO QDAY, #90 TAB 3 Refills Prov:KEERTHI MERCADO MD 12/12/17 Allopurinol (Allopurinol) 300 Mg Tablet, 1 TAB PO DAILY, #90 TAB 3 Refills Prov:KEERTHI MERCADO MD 12/12/17 Losartan Potassium (LOSARTAN POTASSIUM) 100 Mg Tablet, 1 TAB PO QDAY, #90 TB12 3 Refills Prov:KEERTHI MERCADO MD 10/23/17 Reported Medications Pantoprazole Sodium (PANTOPRAZOLE SODIUM) 40 Mg Tablet.dr, 40 MG PO QAM for 90 Days, TAB.SR 06/09/18 Nebivolol Hcl (BYSTOLIC) 5 Mg Tablet, 5 MG PO QHS for 90 Days 06/09/18 Aspirin (ASPIRIN) 81 Mg Tab.chew, 81 MG PO QHS, TAB 06/08/18 Polyethylene Glycol 3350 (MIRALAX) 17 Gm Powd.pack, 1 PACK PO PRN, GM 05/07/18 Discontinued Reported Medications Aspirin (ASPIRIN) 81 Mg Tab.chew, 1 TAB PO BID, TAB.CHEW 03/01/15 Discontinued Scripts Pantoprazole Sodium (PANTOPRAZOLE SODIUM) 40 Mg Tablet.dr, 1 TAB PO DAILY, #90 TAB.SR 3 Refills Prov:KEERTHI MERCADO MD 05/31/18 Nebivolol Hcl (BYSTOLIC) 5 Mg Tablet, 1 TAB PO QDAY, #90 TAB 3 Refills Prov:KEERTHI MERCADO MD 10/23/17 Sucralfate (CARAFATE) 1 Gm Tablet, 1 GM PO ACHS, #56 TAB 0 Refills Prov:KEERTHI MERCADO MD 05/07/18 Follow up Referrals: Internal Medicine - In One Week @ [facility] with KEERTHI MERCADO MD Diet: Regular Activity: As Tolerated Special Instructions: After having a pneumothorax, you should not perform any activities that involve flying or scuba diving or any great changes in elevation for at least 2 weeks. You may remove the dressing on your left chest on 06/14/18. You will need a stress test of your heart and I recommend that you follow up with Dr. Mercado so she can help you arrange this. DAQUAN LORENZ MD Jun 10, 2018 05:51
--- NOTE | 2018-06-10 05:59 | RADIOLOGY IMAGING REPORT ---
FACILITY: [facility] [place] PATIENT NAME: Collins Newman : 1930 MR: [id number] V: [id number] EXAM DATE: ORDERING PHYSICIAN: DAQUAN LORENZ TECHNOLOGIST: Location: [facility] [place] Patient: Collins Newman : 1930 Visit/Account:[id number] Date of Sevice: 06/10/2018 CHEST SINGLE AP 06/10/2018 05:00 hours. HISTORY: Left pneumothorax. Left chest tube. COMPARISON: 06/09/2018 and studies dating to 08/20/2008. TECHNIQUE: Portable AP view of the chest. FINDINGS: Tubes/lines/hardware: There are external chest leads. Pulmonary: Tiny left apical pneumothorax has decreased in size. The lungs are clear. No pleural effus ion. Cardiomediastinal: Cardiac and mediastinal silhouettes are within normal limits. There is mild aortic calcification. Bones/soft tissues: No acute osseous abnormality. The visible abdomen is normal. Subcutaneous emphyse ma of the left chest wall is unchanged. IMPRESSION: 1. Tiny left apical pneumothorax is decreased in size. 2. No acute cardiopulmonary process. Report Dictated By: Radha Ellis at 06/10/2018 5:51 AM Report E-Signed By: Radha Ellis at 06/10/2018 5:55 AM WSN:[id number]
[2018-06-10 06:01] LABS: PLATELET COUNT, AUTOMATED 169 K/uL (150-450)
[2018-06-10] MEDS ORDERED: BENZ100C26 PO (06:01)
[2018-06-10 07:21] VITALS: BP 139/67
[2018-06-10] MEDS: BENZONATATE 100 MG CAP PO PRN (07:25)
[2018-06-10] MEDS: PANTOPRAZOLE SOD 40 MG TABEC PO SCH (09:16)
[2018-06-10] MEDS: DOCUSATE SODIUM 100 MG CAP PO SCH (09:16)
[2018-06-10 09:18] VITALS: BP 142/67
[2018-06-10] MEDS: LOSARTAN POTASSIUM 50 MG TAB PO SCH (09:18)
--- NOTE | 2018-06-10 14:02 | Hospitalist Progress Note ---
Subjective Progress Notes Subjective He has no complaints this morning. He had no acute events overnight. He would like to go home today. Patient Complains of: Cardiovascular: No: Chest Pain Respiratory: No: Shortness of Breath Physical Exam Vital Signs Date Time Temp Pulse Resp B/P (MAP) Pulse Ox O2 Delivery O2 Flow Rate FiO2 06/10/18 09:18 89 06/10/18 09:18 142/67 (92) 06/10/18 07:55 60 06/10/18 07:41 Room Air 06/10/18 07:21 97.7 18 06/10/18 04:22 0.5 Intake and Output 06/10/18 07:00 Intake Total 1010 ml Output Total 3 ml Balance 1007 ml Intake Oral 1010 ml Output Chest Tube Drainage Total 3 ml # Voids 7 # Bowel Movements 2 General Appearance: Alert, Awake, No Acute Distress, Afebrile Neuro: No Gross deficits Cardiovascular: Regular Rate and Rhythm Respiratory: No Respiratory Distress, Clear to Auscultation GI: Soft and Non-Tender Psych: Alert & Oriented X3, Appropriate Mood & Affect Result Diagram: 06/10/18 0520 06/10/18 0520 Monitor Interpretation: Sinus Bradycardia Assessment and Plan Problems: (1) Elevated troponin Status: Acute Assessment & Plan: The patient has a history of CAD with stents in 2006 but has been stable. EKG shows no ischemic changes. The patient is only having pain at the site of his chest tube and when he coughs. He was a bit hypoxic on arrival to the ER with his pneumothorax. Troponin elevated but stable, recommend outpatient Lexiscan given acute respiratory issues. He will follow up with Dr. Stroud to schedule as an outpatient. (2) Acute renal failure Status: Acute Assessment & Plan: Creatinine decreased to 1.4 during admission, which appears to be near his baseline. (3) Pneumothorax, left Status: Acute Assessment & Plan: Dr. Clay has placed a chest tube and CXR shows the left lung to be reexpanded. (4) CAD (coronary artery disease) Status: Chronic Assessment & Plan: The patient has a history of CAD s/p stents X 2 in 2006. He states he has not had any issues recently. He is on ASA and a beta delta. He does not see cardiology. He states he quit seeing them because they wanted him to do an ETT and he did not want to do it. Recommend outpatient Lexiscan. He agrees to follow up as an outpatient for stress test. (5) Essential hypertension Status: Chronic Assessment & Plan: On losartan, nebivolol and HCTZ. (6) Pure hypercholesterolemia Status: Chronic Assessment & Plan: Continue simvastatin 10mg. Exam Sepsis Risk: No Definite Risk DANAY PORTILLO DIPLOMA MAKER Jun 10, 2018 14:02
== END 2018-06-10 10:02 | disposition home or self-care (01) | DRG 200 ==
LOC: ER 23:45 → MED 06-09 02:09
PROVIDERS: ADMIT Surgery; ATTEND Surgery
PROC: 0W9B30Z Drainage of Left Pleural Cavity with Drainage Device, Percutaneous Approach (ICD-10-PCS; principal; 2018-06-09)
DX: J93.9 Pneumothorax, unspecified (principal); N17.9 Acute kidney failure, unspecified; I10 Essential (primary) hypertension; I25.10 Atherosclerotic heart disease of native coronary artery without angina pectoris; I25.2 Old myocardial infarction; E78.00 Pure hypercholesterolemia, unspecified; M1A.9XX0 Chronic gout, unspecified, without tophus (tophi); L71.9 Rosacea, unspecified; L30.9 Dermatitis, unspecified; E78.5 Hyperlipidemia, unspecified; Z95.5 Presence of coronary angioplasty implant and graft; Z87.891 Personal history of nicotine dependence
CPT/HCPCS: 36415; 71045; 71046; 81001; 82040; 82247; 82310; 82374; 82435; 82565; 82947; 83880; 84075; 84132; 84155; 84295; 84450; 84460; 84484; 84520; 85025; 85379; 93005; 96374; 96375; 99285; A7048; J2270; J3010; J7030

== ENCOUNTER 2018-06-11 16:00 | Outpatient (RCR) | payer MEDICARE ==
[2018-06-09 12:19] VITALS: BMI 28.3
[~2018-06-11 16:00] MED LIST changes: +BENZ100C26 PO
--- NOTE | 2018-06-13 11:38 | Transitional Care Management ---
Assessment Visit Type: Telephone Visit (06/11 Collins 06/03 Collins) Cardiac: WNL Respiratory: WNL Except Respiratory Comment: 06/11 Coughing alot" Has pain where tube was. Takes Tesslon perles but they don't last very long. "I wish I could quit coughing" 06/13 Doing a little better But still have that cough." He sound better today and I didn't noticed the wheeze that he had before and he wasn't coughing as much GI: Nutrition: WNL Constipation?: No Musculoskeletal, Exercise: WNL Except Musculoskeletal, Excercise Com: 06/11 "Not moving around much today because of coughing. Mostly sitting in recliner. Enc him to move around every hour or so so He doesn't get pneu. 06/13 Walking around around house a little to BR and around. Still get to coughing if I move to fast. "I'm going to my daughters for dinner today. Enc him to cover mouth and nose in this wind Feeling of Well Being: WNL Socialization: WNL Pain/Management: WNL Except Pain/Management Comment: 06/11 When I cough it hurts where they had that tube. I have no pain meds" 06/13 still has the pain in his upper ches and where they had the tube. Some times it is 7-8 when I get to coughing. Scheduled Follow-Up with [facility]: Yes (Dr. Stroud on 06/17) Needed or Pending Tests: Yes (06/[address] Stroud about a stress test) TCM Discharge Criteria Medication Knowledge: 06/13 knows medications . He wishes he had a better cough medicine Disease Management/Concern/Wha: 06/11 went over red and yellow flags of pneuthorax and SOB. 06/13 discussed red/yellow flags. Transitional Care Comment: 06/09 gave Mr Newman notes on Chest tubes and pneuothorax. Will Follow up this afternoon 06/11 Fells pretty sluggish. Mostly resting today. Still has alot of pain d/t coughing 06.13 Mr Newman sounded better on the phone. Sounded like some of the coughing has stopped. He does state he still coughting and cusing alot of pain in his upper chest and under arm where the tube was placed. He has an appt set up for [facility] with Dr Villalta on . I enc him to inquire about a differt cough medicine. He will also check on the stress test. He going to his daughters today for their Thanksgiving dinner. Copies to: KEERTHI MERCADO MD ; PRINCE BOOTH Jun 13, 2018 11:38
[2018-06-17] MEDS ORDERED: ROBC PO (11:14)
[2018-06-17] MEDS ORDERED: BENZ100C26 PO (11:14)
--- NOTE | 2018-06-21 10:53 | Transitional Care Management ---
Assessment Cardiac: WNL Respiratory: WNL Except Respiratory Comment: 06/11 Coughing alot" Has pain where tube was. Takes Tesslon perles but they don't last very long. "I wish I could quit coughing" 06/13 Doing a little better But still have that cough." He sound better today and I didn't noticed the wheeze that he had before and he wasn't coughing as much 06/21 states feeling "pretty good" cough is "better" after starting new cough med with codeine. still has green sputum that was noted iin PCP note. GI: Nutrition: WNL GI Comment: 06/21 Instruct to avoid straining due to pneumothorax. states is constipated. Enc fluids and fiber and/or softeners Constipation?: No Musculoskeletal, Exercise: WNL Except Musculoskeletal, Excercise Com: 06/11 "Not moving around much today because of coughing. Mostly sitting in recliner. Enc him to move around every hour or so so He doesn't get pneu. 06/13 Walking around around house a little to BR and around. Still get to coughing if I move to fast. "I'm going to my daughters for dinner today. Enc him to cover mouth and nose in this wind Integumentary Comment: 06/[address] site is healed Feeling of Well Being: WNL Socialization: WNL Pain/Management: WNL Except Pain/Management Comment: 06/11 When I cough it hurts where they had that tube. I have no pain meds" 06/13 still has the pain in his upper ches and where they had the tube. Some times it is 7-8 when I get to coughing. 06/21 "not much" pain Scheduled Follow-Up with [facility]: Yes (Dr. Stroud on 06/17) Questions for Future PCP Visit: 06/21 has instruct to f/u for scheduling stress test Needed or Pending Tests: Yes (06/[address] Stroud about a stress test) TCM Discharge Criteria Medication Knowledge: 06/13 knows medications . He wishes he had a better cough medicine Disease Management/Concern/Wha: 06/11 went over red and yellow flags of pneuthorax and SOB. 06/13 discussed red/yellow flags. Transitional Care Comment: 06/09 gave Mr Newman notes on Chest tubes and pneuothorax. Will Follow up this afternoon 06/11 Fells pretty sluggish. Mostly resting today. Still has alot of pain d/t coughing . Mr Newman sounded better on the phone. Sounded like some of the coughing has stopped. He does state he still coughting and cusing alot of pain in his upper chest and under arm where the tube was placed. He has an appt set up for [facility] with Dr Villalta on . I enc him to inquire about a differt cough medicine. He will also check on the stress test. He going to his daughters today for their Thanksgiving dinner. 06/21 review early s/s pneumonia,pneumothorax to report, early recognition and tx. still considering stress test; will call . agree to dc from ELBERT VALDEZ Jun 21, 2018 10:53
[2018-06-24] MEDS ORDERED: BENZ100C26 PO (09:56)
== END 2018-06-23 07:09 | disposition home or self-care (01) ==
LOC: TCM 16:00
PROVIDERS: ATTEND Nurse Practitioner
DX: Z02.9 Encounter for administrative examinations, unspecified (principal)

== ENCOUNTER → 2018-07-02 | Outpatient (CLI) | payer MEDICARE ==
[2018-06-09 12:19] VITALS: BMI 28.3
[~2018-07-02] MED LIST changes: +BARIUM SULFATE 176 GM BTL PO ONE; +BARIUM SULFATE 340 GM POWD ONE; -LOSA100T69 PO; +LOSA100T75 PO; -LOSA50TA74 PO; +LOSA50TA80 PO; +ROBC PO
--- NOTE | 2018-07-02 17:18 | RADIOLOGY IMAGING REPORT ---
FACILITY: [facility] PATIENT NAME: Collins Newman : 1930 MR: [id number] V: [id number] EXAM DATE: ORDERING PHYSICIAN: KEERTHI MERCADO TECHNOLOGIST: [place] [facility] [place] Patient: Collins Newman : 1930 Visit/Account:[id number] Date of Sevice: 07/02/2018 Exam type: ESOPHAGRAM History: Cough, GERD wind supine Comparison: None. Findings: Double contrast esophagram was performed with thick and thin barium fluoroscopic spot imaging was obt ained over the hypopharynx cervical and thoracic portions of the esophagus and the gastroesophageal j unction. A small amount of gastroesophageal reflux was observed fluoroscopically. There is no signi ficant narrowing within the esophagus and no evidence of mucosal erosion. The fluoroscopy dose area product was 272.79 micro-Munguia per meter squared IMPRESSION: 1. Small amount of gastroesophageal reflux was observed although no evidence of esophageal narrowing or mucosal erosion Report Dictated By: Chichi Littlejohn MD at 07/02/2018 5:10 PM Report E-Signed By: Chichi Littlejohn MD at 07/02/2018 5:13 PM WSN:[email or web address]
== END ==
LOC: RAD 00:54
PROVIDERS: ATTEND Internal Medicine
DX: K21.9 Gastro-esophageal reflux disease without esophagitis (principal)
CPT/HCPCS: 74220

== ENCOUNTER → 2018-09-04 | Outpatient (CLI) | payer MEDICARE ==
[2018-06-09 12:19] VITALS: BMI 28.3
[~2018-09-04] MED LIST changes: -BARIUM SULFATE 176 GM BTL PO ONE; -BARIUM SULFATE 340 GM POWD ONE
--- NOTE | 2018-09-04 09:35 | RADIOLOGY IMAGING REPORT ---
FACILITY: [facility] - [place] PATIENT NAME: Collins Newman : 1930 MR: [id number] V: [id number] EXAM DATE: ORDERING PHYSICIAN: KEERTHI MERCADO TECHNOLOGIST: Location: Patient: Collins Newman : 1930 Visit/Account:[id number] Date of Sevice: 09/04/2018 EXAMINATION: PA and Lateral Chest 09/04/2018 9:07 AM HISTORY: Cough, shortness of breath for one week. History of smoking. COMPARISON: 06/10/2018 FINDINGS: Cardiomediastinal contours: Stable heart size. Aorta is atherosclerotic and tortuous, unchanged. Lungs and pleura: Hyperinflated lungs with mildly increased reticular markings with a stable appearan ce. No acute infiltrate or consolidation. Pleural spaces are clear. Left pneumothorax has resolved . Bones/soft tissues: No acute bony finding. Left chest wall emphysema on the prior has resolved. IMPRESSION: Hyperinflated lungs with mildly increased markings presumably secondary to the history of smoking. No significant acute finding. Report Dictated By: Kenyon Olivares MD at 09/04/2018 9:28 AM Report E-Signed By: Kenyon Olivares MD at 09/04/2018 9:31 AM WSN:[email or web address]
== END ==
LOC: RAD 08:52
PROVIDERS: ATTEND Internal Medicine
DX: I70.0 Atherosclerosis of aorta (principal); R91.8 Other nonspecific abnormal finding of lung field
CPT/HCPCS: 71046

== ENCOUNTER 2018-09-09 01:30 | Emergency (ER) | payer MEDICARE ==
[2018-06-09 12:19] VITALS: Wt 73.5 kg
--- NOTE | 2018-09-09 01:42 | ER Report ---
History and Physical Time Seen By MD: 01:42 Hx. of Stated Complaint: cough since last sun night. has seen his pcp, has meds, not getting btter (ARPAN WATSON MD) HPI/ROS CHIEF COMPLAINT: Shortness of breath, chest pressure, cough and dizziness HISTORY OF PRESENT ILLNESS: This is an 87-year-old male. He has been feeling sick about a week ago when he started having a cough. He saw his primary care physician but is not feeling much better despite using benzonatate and guaifenesin with codeine. They did an influenza test which was negative. He is short of breath and has a little bit of substernal chest discomfort as well. He has been feeling dizzy which is more of a lightheaded feeling like he might pass out. No vertigo. This worsens when he stands up or sits up. Has been eating and drinking without any difficulty and denies any nausea or vomiting. Bowel and bladder function been normal for him as well. Denies any fevers or chills. (ARPAN WATSON MD) Allergies: Coded Allergies: No Known Drug Allergies (Unverified , 09/09/18) Home Meds Active Scripts Guaifenesin/Codeine (GUAIFENESIN-CODEINE SYRUP) 5 Ml Syrp, 1-2 TSP PO QID PRN for cough, #4 OZ 0 Refills Prov:KEERTHI MERCADO MD 09/02/18 Benzonatate (BENZONATATE) 100 Mg Capsule, 1 CAP PO Q6H PRN for COUGH, #20 CAPSULE 0 Refills Prov:KEERTHI MERCADO MD 09/02/18 Simvastatin (SIMVASTATIN) 10 Mg Tablet, 1 TAB PO QODAY, #45 TAB 3 Refills Prov:KEERTHI MERCADO MD 12/12/17 Hydrochlorothiazide (HYDROCHLOROTHIAZIDE) 25 Mg Tablet, 1 TAB PO QDAY, #90 TAB 3 Refills Prov:KEERTHI MERCADO MD 12/12/17 Allopurinol (Allopurinol) 300 Mg Tablet, 1 TAB PO DAILY, #90 TAB 3 Refills Prov:KEERTHI MERCADO MD 12/12/17 Losartan Potassium (LOSARTAN POTASSIUM) 100 Mg Tablet, 1 TAB PO QDAY, #90 TB12 3 Refills Prov:KEERTHI MERCADO MD 10/23/17 Reported Medications Pantoprazole Sodium (PANTOPRAZOLE SODIUM) 40 Mg Tablet.dr, 1 TAB PO QAM for 90 Days, TAB.SR 06/09/18 Nebivolol Hcl (BYSTOLIC) 5 Mg Tablet, 1 TAB PO QHS for 90 Days 06/09/18 Aspirin (ASPIRIN) 81 Mg Tab.chew, 1 TAB PO QHS, TAB 06/08/18 Polyethylene Glycol 3350 (MIRALAX) 17 Gm Powd.pack, 1 PACK PO PRN, GM 05/07/18 Past Medical/Surgical History Coronary artery disease, hypertension, hyperlipidemia, history of ME, TIA, COPD, former smoker, history of GI bleeding and bleeding ulcer, gout, surgeries include stents, appendectomy, cataracts, carpal tunnel (ARPAN WATSON MD) Reviewed Nurses Notes: Yes (ARPAN WATSON MD) Hx Smoking: Yes Smoking Status: Former Smoker Exposure to Second Hand Smoke?: No Hx Substance Use Disorder: No Hx Alcohol Use: Yes (ARPAN WATSON MD) Constitutional Vital Sign - Last 24 Hours 09/09/18 09/09/18 09/09/18 09/09/18 01:30 01:35 01:39 01:45 Temp 97.6 Pulse ??? 69 58 Resp 18 9 B/P (MAP) 156/60 156/60 (92) Pulse Ox 89 94 O2 Delivery Room Air 09/09/18 09/09/18 09/09/18 09/09/18 02:00 02:01 02:03 02:06 Pulse 55 Resp 15 B/P (MAP) 150/74 (99) 165/78 (107) 157/79 (105) Pulse Ox 91 O2 Flow Rate 2.0 09/09/18 09/09/18 09/09/18 09/09/18 02:30 02:40 02:45 02:50 Pulse ??? 57 55 Resp 17 B/P (MAP) 139/68 (91) Pulse Ox 93 93 09/09/18 09/09/18 09/09/18 09/09/18 03:00 03:20 03:35 03:38 Pulse 59 58 55 Resp 22 21 B/P (MAP) 150/71 (97) Pulse Ox 95 93 09/09/18 09/09/18 09/09/18 09/09/18 03:43 03:58 04:00 04:13 Pulse 58 51 52 Resp 25 15 B/P (MAP) 148/73 (98) Pulse Ox 94 91 09/09/18 09/09/18 09/09/18 09/09/18 04:28 04:33 04:48 05:03 Pulse 54 61 ? Resp 25 21 Pulse Ox 88 86 09/09/18 09/09/18 09/09/18 09/09/18 05:18 05:33 05:48 06:03 Pulse 56 58 60 59 Resp 15 15 17 17 Pulse Ox 95 95 94 93 09/09/18 09/09/18 09/09/18 09/09/18 06:18 07:40 08:19 08:19 Temp 97.5 Pulse 63 62 Resp 19 18 Pulse Ox 92 93 O2 Delivery Nasal Cannula O2 Flow Rate 2.0 09/09/18 08:25 Pulse 61 Resp 16 Intake and Output 09/08/18 09/08/18 09/09/18 15:00 23:00 07:00 Intake Total 1000 ml Balance 1000 ml (JOSIANE TERRELL MD) Physical Exam General Appearance: The patient is alert. No acute distress. Eyes: Pupils are equal, round. Reactive to light. No pallor, injection or icterus. Extraocular movements are intact. ENT: Mucous membranes are moist. Normal oral mucosa. Posterior oropharynx is normal. Neck: Supple and non tender. Respiratory: Mild cough, nonproductive. Lungs have mild rhonchi in the bases, no wheezing or rales noted. Cardiovascular: Regular rate and rhythm. No murmurs, gallops or rubs. Normal capillary refill. On cardiac rehabilitation specialist he has had a couple of episodes of runs of bigeminy which then would resolve. Not able to really correlate the feeling of dizziness chest pain or shortness of breath with these runs. Gastrointestinal: Abdomen is soft and non tender. Nondistended. Normal active bowel sounds. Neurological: Alert and oriented x3. No focal neurologic deficits Skin: Warm and dry. Musculoskeletal: Extremities are nontender. No tenderness in palpation of the cervical, thoracic and lumbar spine. DIFFERENTIAL DIAGNOSIS: After history and physical exam, differential diagnosis was considered for shortness of breath, dizziness and chest pain including but not limited to myocardial ischemia, viral syndrome, pulmonary embolus, pleural inflammation and pulmonary infectious causes. ([facility]) Medical Decision Making Data Points Result Diagram: 09/09/18 0158 09/09/18 0158 Laboratory Hematology Test 09/09/18 01:58 09/09/18 02:32 09/09/18 08:33 Red Blood Count 4.45 M/uL (4.00-5.60) Mean Corpuscular Volume 97.1 fL (80.0-96.0) Mean Corpuscular Hemoglobin 31.8 pg (26.0-33.0) Mean Corpuscular Hemoglobin Concent 32.7 g/dL (32.0-36.0) Red Cell Distribution Width 15.4 % (11.5-14.5) Mean Platelet Volume 9.7 fL (7.2-11.1) Neutrophils (%) (Auto) 82.4 % (39.4-72.5) Lymphocytes (%) (Auto) 7.8 % (17.6-49.6) Monocytes (%) (Auto) 6.4 % (4.1-12.4) Eosinophils (%) (Auto) 1.9 % (0.4-6.7) Basophils (%) (Auto) 1.5 % (0.3-1.4) Nucleated RBC Relative Count (auto) 0.3 /100WBC Neutrophils # (Auto) 3.5 K/uL (2.0-7.4) Lymphocytes # (Auto) 0.3 K/uL (1.3-3.6) Monocytes # (Auto) 0.3 K/uL (0.3-1.0) Eosinophils # (Auto) 0.1 K/uL (0.0-0.5) Basophils # (Auto) 0.1 K/uL (0.0-0.1) Nucleated RBC Absolute Count (auto) 0.01 K/uL Sodium Level 134 mmol/L (137-145) Potassium Level 3.5 mmol/L (3.5-5.0) Chloride Level 101 mmol/L (98-107) Carbon Dioxide Level 27 mmol/L (22-30) Blood Urea Nitrogen 30 mg/dl (9-21) Creatinine 1.30 mg/dl (0.66-1.25) Glomerular Filtration Rate Calc 52.1 Random Glucose 112 mg/dl (75-110) Calcium Level 9.0 mg/dl (8.4-10.2) Total Bilirubin 0.9 mg/dl (0.2-1.3) Aspartate Amino Transf (AST/SGOT) 24 U/L (0-35) Alanine Aminotransferase (ALT/SGPT) 28 U/L (0-56) Alkaline Phosphatase 58 U/L (0-126) Total Protein 6.4 g/dl (6.3-8.2) Albumin 3.6 g/dl (3.5-5.0) Urine Color Yellow Urine Clarity Slightly-cloudy Urine pH 5.0 pH (4.8-9.5) Urine Specific [place] 1.021 Urine Protein 100 mg/dL (NEGATIVE) Urine Glucose (UA) Negative mg/dL (NEGATIVE) Urine Ketones Negative mg/dL (NEGATIVE) Urine Blood Small (NEGATIVE) Urine Nitrite Negative (NEGATIVE) Urine Bilirubin Negative (NEGATIVE) Urine Urobilinogen Negative mg/dL (0.2-1.9) Urine Leukocyte Esterase Negative (NEGATIVE) Urine RBC 1 /HPF (0-2/HPF) Urine WBC 4 /HPF (0-5/HPF) Urine Squamous Epithelial Cells Few /LPF (</=FEW) Urine Transitional Epithelial Cells Few /LPF (NONE-FEW) Urine Bacteria Negative /HPF (NONE-FEW) Urine Hyaline Casts Few /LPF (NONE-FEW) Urine Granular Casts Few /LPF (NONE) Urine Mucus Few /HPF (NONE-FEW) Troponin I 0.110 ng/ml Chemistry Test 09/09/18 01:58 09/09/18 02:32 09/09/18 08:33 White Blood Count 4.3 k/uL (4.5-11.0) Red Blood Count 4.45 M/uL (4.00-5.60) Hemoglobin 14.1 g/dL (14.0-18.0) Hematocrit 43.2 % (42.0-52.0) Mean Corpuscular Volume 97.1 fL (80.0-96.0) Mean Corpuscular Hemoglobin 31.8 pg (26.0-33.0) Mean Corpuscular Hemoglobin Concent 32.7 g/dL (32.0-36.0) Red Cell Distribution Width 15.4 % (11.5-14.5) Platelet Count 149 K/uL (150-450) Mean Platelet Volume 9.7 fL (7.2-11.1) Neutrophils (%) (Auto) 82.4 % (39.4-72.5) Lymphocytes (%) (Auto) 7.8 % (17.6-49.6) Monocytes (%) (Auto) 6.4 % (4.1-12.4) Eosinophils (%) (Auto) 1.9 % (0.4-6.7) Basophils (%) (Auto) 1.5 % (0.3-1.4) Nucleated RBC Relative Count (auto) 0.3 /100WBC Neutrophils # (Auto) 3.5 K/uL (2.0-7.4) Lymphocytes # (Auto) 0.3 K/uL (1.3-3.6) Monocytes # (Auto) 0.3 K/uL (0.3-1.0) Eosinophils # (Auto) 0.1 K/uL (0.0-0.5) Basophils # (Auto) 0.1 K/uL (0.0-0.1) Nucleated RBC Absolute Count (auto) 0.01 K/uL Glomerular Filtration Rate Calc 52.1 Calcium Level 9.0 mg/dl (8.4-10.2) Total Bilirubin 0.9 mg/dl (0.2-1.3) Aspartate Amino Transf (AST/SGOT) 24 U/L (0-35) Alanine Aminotransferase (ALT/SGPT) 28 U/L (0-56) Alkaline Phosphatase 58 U/L (0-126) Total Protein 6.4 g/dl (6.3-8.2) Albumin 3.6 g/dl (3.5-5.0) Urine Color Yellow Urine Clarity Slightly-cloudy Urine pH 5.0 pH (4.8-9.5) Urine Specific [place] 1.021 Urine Protein 100 mg/dL (NEGATIVE) Urine Glucose (UA) Negative mg/dL (NEGATIVE) Urine Ketones Negative mg/dL (NEGATIVE) Urine Blood Small (NEGATIVE) Urine Nitrite Negative (NEGATIVE) Urine Bilirubin Negative (NEGATIVE) Urine Urobilinogen Negative mg/dL (0.2-1.9) Urine Leukocyte Esterase Negative (NEGATIVE) Urine RBC 1 /HPF (0-2/HPF) Urine WBC 4 /HPF (0-5/HPF) Urine Squamous Epithelial Cells Few /LPF (</=FEW) Urine Transitional Epithelial Cells Few /LPF (NONE-FEW) Urine Bacteria Negative /HPF (NONE-FEW) Urine Hyaline Casts Few /LPF (NONE-FEW) Urine Granular Casts Few /LPF (NONE) Urine Mucus Few /HPF (NONE-FEW) Troponin I 0.110 ng/ml Urinalysis Test 09/09/18 02:32 Urine Color Yellow Urine Clarity Slightly-cloudy Urine pH 5.0 pH (4.8-9.5) Urine Specific [place] 1.021 Urine Protein 100 mg/dL (NEGATIVE) Urine Glucose (UA) Negative mg/dL (NEGATIVE) Urine Ketones Negative mg/dL (NEGATIVE) Urine Blood Small (NEGATIVE) Urine Nitrite Negative (NEGATIVE) Urine Bilirubin Negative (NEGATIVE) Urine Urobilinogen Negative mg/dL (0.2-1.9) Urine Leukocyte Esterase Negative (NEGATIVE) Urine RBC 1 /HPF (0-2/HPF) Urine WBC 4 /HPF (0-5/HPF) Urine Squamous Epithelial Cells Few /LPF (</=FEW) Urine Transitional Epithelial Cells Few /LPF (NONE-FEW) Urine Bacteria Negative /HPF (NONE-FEW) Urine Hyaline Casts Few /LPF (NONE-FEW) Urine Granular Casts Few /LPF (NONE) Urine Mucus Few /HPF (NONE-FEW) (JOSIANE TERRELL MD) EKG/Imaging EKG Interpretation 12 lead EKG: Rhythm: Sinus bradycardia with first-degree AV block Lucan: Left axis QRS: Right bundle branch block ST segments: No ST elevation or depression noted On evaluation and comparison with prior EKGs, essentially unchanged Imaging CHEST: Indication: Persistent cough and dyspnea. Technique: Frontal and lateral views were obtained. Comparison: 09/04/2018 Skeletal and soft tissue structures: Intact and unremarkable. Heart and mediastinum: Within normal limits. Lung castillo: Hyperinflated. No focal opacity or consolidation. Pleural spaces: Unremarkable. Impression: No acute process or significant change. Report Dictated By: Royer Collado MD at 09/09/2018 2:56 AM ([facility] MD) ED Course/Re-evaluation Clinical Indication for ER IV: Hydration, IV Access ED Course Orthostatic vital signs obtained and are negative for orthostatic hypotension. Initial vital signs were stable. Troponin was slightly increased, no EKG changes showing ischemia. Initial x-ray negative for acute cardiopulmonary process. His white blood cell count is normal. Discussed all this with the patient and recommended repeating troponin and 3 hours. Repeat EKG shows no changes. Troponin did go up to 0.09, still in the indeterminate range. This does not appear to be a elevation related to myocardial infarction but recommended repeat troponin. We did talk about trying to get a stress test set up, the patient is a little reluctant to do this but said if we could do a nuclear stress test without a treadmill he would be open to that idea. Discussed briefly with our hospitalist regarding this possibility and they will look into this for the next day or 2. In the meantime we will be repeating another troponin. Based on continued cough, shortness of breath and chest pain we will go ahead and get a CT scan (ARPAN WATSON MD) ED Course Patient turned over to me from Dr. Watson awaiting repeat troponin and further evaluation. Dr. Watson recommended admission for stress test, however patient is adamantly opposed to this. I discussed this with patient as well, and agreed with recommendation for admission. I also told patient that it is possible he is having a heart attack now or is at moderate to high risk for having one in the near future. Patient understands but would not want stress test or cardiac cath eterization and would rather go home. He is most concerned about the cough for which he presented. I think the cough is unlikely to be associated with ME; his CT shows signs of bronchitis and/or emphysema. I treated him with two nebs to which he responded very well and is now asymptomatic on reevaluation. I discussed the risks and benefits of albuterol, noting that this too can increase his heart rate and his potential for heart attack. Patient understands but is comfortable with this risk. This was discussed in front of family as well. At this point, patient feels much better and wishes to go home. Decision to Disposition Date: Sep 09, 2018 Decision to Disposition Time: 09:14 (JOSIANE TERRELL MD) Depart Departure Latest Vital Signs Vital Signs Date Time Temp Pulse Resp B/P (MAP) Pulse Ox O2 Delivery O2 Flow Rate FiO2 09/09/18 08:25 61 16 09/09/18 08:19 93 Nasal Cannula 2.0 09/09/18 07:40 97.5 09/09/18 04:00 148/73 (98) (JOSIANE TERRELL MD) Impression: Primary Impression: Elevated troponin Additional Impression: Reactive airway disease Condition: Improved Disposition: HOME OR SELF-CARE Referrals: KEERTHI MERCADO MD (PCP) 2 Days New Scripts Albuterol Sulfate 90 Mcg/Act (PROAIR HFA 90 MCG/ACT) 8.5 Gm Hfa.aer.ad 2 PUFF IH Q4-6H for cough, #1 INHALER Prov: JOSIANE TERRELL MD 09/09/18 Prednisone (PREDNISONE) 20 Mg Tablet 40 MG PO QDAY for 4 Days, #8 TAB Prov: JOSIANE TERRELL MD 09/09/18 Patient Instructions: COPD (Chronic Obstructive Pulmonary Disease) (ED) Additional Instructions: As we discussed, your troponin level continues to slowly rise. I am concerned that your heart is not getting enough oxygen, and ultimately you need an urgent cardiac catheterization to see if you need new stents. I understand that you do not want to stay in the hospital or have a stress test, however you are at moderate to high risk to have a heart attack. I believe the symptoms you came in for are consistent with COPD. Therefore, an inhaler and prednisone, which have helped here should continue to help these symptoms. As we discussed, the inhaler can increase her heart rate which can be bad for you, so if you have any concerning chest pressure or worsening difficulty breathing, please stop the inhaler and I recommend you return right away. Please see your primary doctor this week to reassess your progress and to see if you need to be on oxygen. Please return for any concerns. Problem Qualifiers Additional Impression: Reactive airway disease Asthma severity: moderate Asthma persistence: persistent Asthma complication type: with acute exacerbation Qualified Codes: J45.41 - Moderate persistent asthma with (acute) exacerbation ARPAN WATSON MD Sep 09, 2018 01:42 JOSIANE TERRELL MD Sep 09, 2018 09:17
[2018-09-09] MEDS ORDERED: NS(*) 0.9% 1000 ML BAG 1,000 ML IV ONE (02:00)
[2018-09-09 02:12] LABS: PLATELET COUNT, AUTOMATED 149 K/uL (150-450)
--- NOTE | 2018-09-09 03:22 | RADIOLOGY IMAGING REPORT ---
FACILITY[place] [facility] [place] PATIENT NAME: Collins Newman : 1930 MR: [id number] V: [id number] EXAM DATE: ORDERING PHYSICIAN: ARPAN KERN TECHNOLOGIST: Location: [facility] Patient: Collins Newman : 1930 Visit/Account:[id number] Date of Sevice: 09/09/2018 CHEST: Indication: Persistent cough and dyspnea. Technique: Frontal and lateral views were obtained. Comparison: 09/04/2018 Skeletal and soft tissue structures: Intact and unremarkable. Heart and mediastinum: Within normal limits. Lung castillo: Hyperinflated. No focal opacity or consolidation. Pleural spaces: Unremarkable. Impression: No acute process or significant change. Report Dictated By: Royer Collado MD at 09/09/2018 2:56 AM Report E-Signed By: Royre Collado MD at 09/09/2018 2:59 AM WSN:[id number]
[2018-09-09 04:00] VITALS: BP 148/73
--- NOTE | 2018-09-09 04:27 | EKG ---
FACILITY: [facility] PATIENT NAME: SOBEIDA GARCIA : [id number] MR: [id number] V: [id number] EXAM DATE: ORDERING PHYSICIAN: ARPAN KERN TECHNOLOGIST: YONY Test Reason : SOB Blood Pressure : / mmHG Vent. Rate : 056 BPM Atrial Rate : 056 BPM P-R Int : 280 ms QRS Dur : 140 ms QT Int : 484 ms P-R-T Axes : 082 -72 025 degrees QTc Int : 467 ms Sinus bradycardia with 1st degree AV block Left axis deviation Right bundle branch block Abnormal ECG When compared with ECG of 09-JUN-2018 05:02, T wave inversion now evident in Anterior leads Confirmed by Osmar Trammell ([id number]) on 09/09/2018 6:49:15 AM Referred By: Confirmed By:Osmar Juarez
--- NOTE | 2018-09-09 05:46 | EKG ---
FACILITY: [facility] PATIENT NAME: SOBEIDA GARCIA : [id number] MR: [id number] V: [id number] EXAM DATE: ORDERING PHYSICIAN: ARPAN KERN TECHNOLOGIST: YONY Rodarte Reason : REPEAT EKG Blood Pressure : / mmHG Vent. Rate : 056 BPM Atrial Rate : 058 BPM P-R Int : 000 ms QRS Dur : 126 ms QT Int : 464 ms P-R-T Axes : 000 -76 -11 degrees QTc Int : 447 ms Sinus rhythmm with 1st degree AV block Left axis deviation Right bundle branch block Abnormal ECG When compared with ECG of 09-SEP-2018 01:40, Wide QRS rhythm has replaced Sinus rhythm Confirmed by Osmar Trammell ([id number] on 09/09/2018 6:50:09 AM Referred By: Confirmed By:Osmar Juarez
[2018-09-09] MEDS ORDERED: IOPAMIDOL 76% 75 ML INFUS BTL 75 ML ONE (06:29)
[2018-09-09] MEDS ORDERED: NS(*) 0.9% 50 ML BAG 50 ML ONE (06:30)
--- NOTE | 2018-09-09 07:03 | RADIOLOGY IMAGING REPORT ---
FACILITY: [facility] [place] PATIENT NAME: Collins Newman : 1930 MR: [id number] V: [id number] EXAM DATE: [id number] ORDERING PHYSICIAN: ARPAN KERN TECHNOLOGIST: Location: [facility] Patient: Collins Newman : 1930 Visit/Account:[id number] Date of Sevice: 09/09/2018 EXAMINATION: CTA chest with IV contrast HISTORY: Cough, shortness of breath, chest pain. COMPARISON: CT chest from 08/20/2008 and chest radiograph from 09/09/2018. TECHNIQUE: Pulmonary embolus protocol - Thin-slice axial imaging of the chest was performed during maximal pulmonary arterial opacification with intravenous nonionic iodinated contrast. 3D sagittal an d coronal slab MIPs and 2D reconstructions in the coronal and sagittal planes were performed to aid i n pulmonary embolus detection. [employer] images have been stored on PACS. CONTRAST: 75 mL of IV Isovue-370. One of the following dose optimization techniques was utilized in the performance of this exam: Autom ated exposure control; adjustment of the mA and/or kV according to the patient's size; or use of an i terative reconstruction technique. Specific details can be referenced in the facility's radiology C T exam operational policy. FINDINGS: CTA CHEST: Please note that this exam is optimized for assessment of the pulmonary arteries and is not intended as a diagnostic study of the thoracic aorta, coronary arteries or venous structures. Angiographic Findings: Pulmonary arteries: There are no filling defects in the main, right, left, lobar, segmental or visual ized sub-segmental branches of the pulmonary arterial system. No intraluminal webs or bronchial ute aterals. Other vasculature: Extensive atherosclerotic calcifications of the aorta and coronary arteries. Additional non-angiographic findings: Lungs/pleura: Small calcified right lung nodule. There is mild bronchial wall thickening bilaterall y, similar to previous exam. Mild emphysema, worst in the upper lobes. No focal consolidation, pleura l effusion or pneumothorax. Mediastinum/merry: Negative. Heart/pericardium: Negative. Musculoskeletal/body wall: Negative. Lymph nodes: There are a few shotty mediastinal lymph nodes, unchanged. Upper abdomen: There are a few calcified gallstones in the gallbladder. Simple appearing right renal cyst incompletely visualized. Lower neck: Negative. IMPRESSION: 1. No evidence of acute or chronic pulmonary embolism. 2. Extensive atherosclerosis, including of the coronary arteries. 3. Mild bronchial wall thickening is similar to previous CT and could be due to acute or chronic bron chitis. 4. Small calcified granuloma of the right lung, unchanged. 5. Mild emphysema. 6. Cholelithiasis. Report Dictated By: Jie Shahid MD at 09/09/2018 6:50 AM Report E-Signed By: Jie Shahid MD at 09/09/2018 6:59 AM WSN:[id number]
[2018-09-09] MEDS ORDERED: predniSONE 20 MG TAB PO ONE (07:55)
[2018-09-09] MEDS ORDERED: ALBUTEROL/IPRATROPIUM 3 ML NEB NEB ONE ×2 (08:15)
[2018-09-09] MEDS ORDERED: PRED20TA6 PO (09:10)
[2018-09-09] MEDS ORDERED: ALBU8.5H IH (09:10)
== END 2018-09-09 10:45 | disposition home or self-care (01) ==
LOC: ER 02:11
DX: R79.89 Other specified abnormal findings of blood chemistry (principal); J45.41 Moderate persistent asthma with (acute) exacerbation
CPT/HCPCS: 36415; 71046; 71275; 81001; 84484; 85025; 93005; 94640; 96360; 99284; J7030; J7050; J7512; J7620; Q9967; 82040; 82247; 82310; 82374; 82435; 82565; 82947; 84075; 84132; 84155; 84295; 84450; 84460; 84520

== ENCOUNTER → 2019-01-13 | Outpatient (CLI) | payer MEDICARE ==
[2018-06-09 12:19] VITALS: BMI 28.3
[~2019-01-13] MED LIST changes: +ALBU8.5H IH; +OXYGENHOME INH; +PRED20TA6 PO
== END ==
LOC: LAB 11:56
PROVIDERS: ATTEND Nurse Practitioner Family
DX: M10.9 Gout, unspecified (principal); N18.9 Chronic kidney disease, unspecified
CPT/HCPCS: 36415; 82040; 82247; 82310; 82374; 82435; 82565; 82947; 84075; 84132; 84155; 84295; 84450; 84460; 84520; 84550

== ENCOUNTER → 2019-02-26 | Outpatient (CLI) | payer MEDICARE ==
[2018-06-09 12:19] VITALS: BMI 28.3
[~2019-02-26] MED LIST changes: +TAMS0.4C25 PO
== END ==
LOC: LAB 10:24
PROVIDERS: ATTEND Nurse Practitioner Family
DX: Z12.5 Encounter for screening for malignant neoplasm of prostate (principal)
CPT/HCPCS: 36415; G0103; 84153